=== PATIENT | male | born 1995 | race Hispanic/Latino ===

== ENCOUNTER 2019-08-10 15:32 | Emergency (ER) | payer BC, OTHER ==
--- NOTE | 2019-08-10 16:12 | ER ---
Nurse's Notes [facility] Name: Bolivar Tinoco Age: 24 yrs Sex: Male : 1995 Arrival Date: 08/10/2019 Time: 15:35 Bed 18 Private MD: Diagnosis: Scabies Presentation: 08/09 15:45 Chief complaint: Patient states: Rash and itching to bilateral hands, arms, chest and ph abdomen x 2 days, denies difficulty breathing or fever, fine rash noted, has taken Benadryl w/ no relief. 15:49 Coronavirus screen: Patient denies a cough. Patient denies shortness of breath or ph difficulty breathing. Patient denies measured and/or subjective temperature greater than 100.4F prior to today's visit. Patient denies travel on a cruise ship or to a country the [facility] currently lists as an affected area. Patient denies contact with known and/or suspected case of COVID-19. Ebola Screen: No symptoms or risks identified at this time. Onset: The symptoms/episode began/occurred gradually. Anaphylaxis evaluation, no signs or symptoms of anaphylaxis were noted. Initial Sepsis Screen: Does the patient meet any 2 criteria? No. Patient's initial sepsis screen is negative. Does the patient have a suspected source of infection? No. Patient's initial sepsis screen is negative. Risk Assessment: Do you want to hurt yourself or someone else? Patient reports no desire to harm self or others. Onset of symptoms was August 10, 2019. 15:49 Method Of Arrival: Ambulatory ph 15:49 Acuity: BHUPENDRA 4 ph Triage Assessment: 16:00 Pain: Denies pain. 17:13 General: Behavior is cooperative. Historical: - Allergies: 15:52 No Known Allergies; ph - Home Meds: 15:52 None [Active]; ph - PMHx: 15:52 None; ph - PSHx: 15:52 None; ph - Immunization history:: Adult Immunizations unknown. - Social history:: Smoking status: Patient reports the use of cigarette tobacco products, cigars. Screenin:00 Abuse screen: Denies threats or abuse. Nutritional screening: No deficits noted. Tuberculosis screening: No symptoms or risk factors identified. Fall Risk None identified. Assessment: 16:00 General: see triage note. 16:00 Pain: Denies pain. Respiratory: Airway is patent is compromised Respiratory effort is ah even, unlabored, Breath sounds are clear. Vital Signs: 15:49 BP 130 / 88; Pulse 77; Resp 18; Temp 97.6; Pulse Ox 100% on R/A; Weight 93.89 kg; ph Height 5 ft. 9 in. (175.26 cm); 15:49 Body Mass Index 30.57 (93.89 kg, 175.26 cm) ED Course: 15:35 Patient arrived in ED. ag5 15:39 [facility] Calero [facility]-C [facility] sn 15:39 Leonardo French MD is Attending Physician. [facility] 15:49 Hillary Jorge, RN is Primary Nurse. 15:52 Triage completed. 15:52 Arm band placed on Patient placed in an exam room. 16:00 Patient has correct armband on for positive identification. Bed in low position. Call light in reach. 16:00 No provider procedures requiring assistance completed. Patient did not have IV access during this emergency room visit. Administered Medications: No medications were administered Outcome: 16:12 Discharge ordered by . [facility] 16:30 Discharged to home ambulatory. 16:30 Condition: good 16:30 Discharge instructions given to patient, Instructed on discharge instructions, follow up and referral plans. Demonstrated understanding of instructions, follow-up care, medications, Prescriptions given X 2. 16:58 Patient left the ED. bd Signatures: Anais Mccauley Shelly, FNP-C CLERK OPERATOR-Sharron Bush RN RN Chase Brooks 5 iHllary Jorge RN RN Corrections: (The following items were deleted from the chart) 15:52 15:45 Chief complaint: Patient states: Rash and itching to bilateral hands, arms, chest ph and abdomen x 2 days ph
--- NOTE | 2019-08-10 16:12 | EDPHYS ---
Physician Documentation [facility] Name: Bolivar Tinoco Age: 24 yrs Sex: Male : 1995 Arrival Date: 08/10/2019 Time: 15:35 Bed 18 Private MD: ED Physician Leonardo French HPI: 08/10 00:02 This 24 yrs old Male presents to ER via Ambulatory with complaints of Hives. snw 00:02 Onset: The symptoms/episode began/occurred suddenly, 4 day(s) ago, and became snw persistent. Associated signs and symptoms: Pertinent positives: significant itching. Modifying factors: The patient symptoms are alleviated by nothing. The patient has not experienced similar symptoms in the past. The patient has not recently seen a physician. works for a delivery service. Historical: - Allergies: 08/09 15:52 No Known Allergies; ph - Home Meds: 15:52 None [Active]; ph - PMHx: 15:52 None; ph - PSHx: 15:52 None; ph - Immunization history:: Adult Immunizations unknown. - Social history:: Smoking status: Patient reports the use of cigarette tobacco products, cigars. ROS: 08/10 00:02 Constitutional: Negative for fever, chills, and weight loss, Eyes: Negative for injury, snw pain, redness, and discharge, ENT: Negative for injury, pain, and discharge, Neck: Negative for injury, pain, and swelling, Cardiovascular: Negative for chest pain, palpitations, and edema, Respiratory: Negative for shortness of breath, cough, wheezing, and pleuritic chest pain, Abdomen/GI: Negative for abdominal pain, nausea, vomiting, diarrhea, and constipation, Back: Negative for injury and pain, : Negative for injury, bleeding, discharge, and swelling, MS/Extremity: Negative for injury and deformity, Neuro: Negative for headache, weakness, numbness, tingling, and seizure. Skin: Positive for rash. Exam: 08/09 23:57 Constitutional: This is a well developed, well nourished patient who is awake, alert, snw and in no acute distress. Head/Face: Normocephalic, atraumatic. Eyes: Pupils equal round and reactive to light, extra-ocular motions intact. Lids and lashes normal. Conjunctiva and sclera are non-icteric and not injected. Cornea within normal limits. Periorbital areas with no swelling, redness, or edema. ENT: Nares patent. No nasal discharge, no septal abnormalities noted. Tympanic membranes are normal and external auditory canals are clear. Oropharynx with no redness, swelling, or masses, exudates, or evidence of obstruction, uvula midline. Mucous membranes moist. Neck: Trachea midline, no thyromegaly or masses palpated, and no cervical lymphadenopathy. Supple, full range of motion without nuchal rigidity, or vertebral point tenderness. No Meningismus. Chest/axilla: Normal chest wall appearance and motion. Nontender with no deformity. No lesions are appreciated. Cardiovascular: Regular rate and rhythm with a normal S1 and S2. No gallops, murmurs, or rubs. Normal PMI, no JVD. No pulse deficits. Respiratory: Lungs have equal breath sounds bilaterally, clear to auscultation and percussion. No rales, rhonchi or wheezes noted. No increased work of breathing, no retractions or nasal flaring. Abdomen/GI: Soft, non-tender, with normal bowel sounds. No distension or tympany. No guarding or rebound. No evidence of tenderness throughout. Back: No spinal tenderness. No costovertebral tenderness. Full range of motion. MS/ Extremity: Pulses equal, no cyanosis. Neurovascular intact. Full, normal range of motion. Neuro: Awake and alert, GCS 15, oriented to person, place, time, and situation. Cranial nerves II-XII grossly intact. Motor strength 5/5 in all extremities. Sensory grossly intact. Cerebellar exam normal. Normal gait. Psych: Awake, alert, with orientation to person, place and time. Behavior, mood, and affect are within normal limits. Skin: Appearance: normal except for affected area, scabies, on the interdigit, and up bilateral arms. Vital Signs: 15:49 BP 130 / 88; Pulse 77; Resp 18; Temp 97.6; Pulse Ox 100% on R/A; Weight 93.89 kg; ph Height 5 ft. 9 in. (175.26 cm); 15:49 Body Mass Index 30.57 (93.89 kg, 175.26 cm) ph MDM: 15:56 Patient medically screened. snw 23:59 Data reviewed: vital signs, nurses notes. Data interpreted: Pulse oximetry: on room air snw is 100 %. Interpretation: normal. Counseling: I had a detailed discussion with the patient and/or guardian regarding: the historical points, exam findings, and any diagnostic results supporting the discharge/admit diagnosis, the need for outpatient follow up, to return to the emergency department if symptoms worsen or persist or if there are any questions or concerns that arise at home. Special discussion: I have referred the patient to see his PCP for further evaluation of high blood pressure. Based on the history and exam findings, there is no indication for further emergent testing or inpatient evaluation. I discussed with the patient/guardian the need to see the primary care provider for further evaluation of the symptoms. Administered Medications: No medications were administered Disposition: 08/10/19 16:12 Discharged to Home. Impression: Scabies. - Condition is Stable. - Discharge Instructions: Scabies, Adult. - Prescriptions for Elimite 5 % Topical Cream - apply 1 application by TOPICAL route one time Wash after 12 hours.; 60 gram. Zyrtec 10 mg Oral Tablet - take 1 tablet by ORAL route once daily As needed; 20 tablet. - Work release form, Medication Reconciliation Form, Thank You Letter, Antibiotic Education, Prescription Opioid Use form. - Follow up: Emergency Department; When: As needed; Reason: Worsening of condition. Follow up: Private Physician; When: As needed; Reason: Recheck today's complaints, Continuance of care. Addendum: 08/15/2019 07:10 Co-signature as Attending Physician, Leonardo French MD. [facility] Signatures: Anais Mccauley Shelly, BENJY-C ENGINEER [employer]-CsnSharron Victor RN RN ph Leonardo French MD MD [email or web address] Corrections: (The following items were deleted from the chart) 08/09 16:58 16:12 08/10/2019 16:12 Discharged to Home. Impression: Scabies. Condition is Stable. bd Forms are Medication Reconciliation Form, Thank You Letter, Antibiotic Education, Prescription Opioid Use. Follow up: Emergency Department; When: As needed; Reason: Worsening of condition. Follow up: Private Physician; When: As needed; Reason: Recheck today's complaints, Continuance of care. snw
[2019-08-10 17:05] VITALS: BP 130/88; TEMP 97.6; O2SAT 100
== END 2019-08-10 16:58 | disposition home or self-care (01) ==
LOC: ER 15:32
DX: B86 Scabies (principal); F17.210 Nicotine dependence, cigarettes, uncomplicated
CPT/HCPCS: 99282